=== PATIENT | female | born 1990 | race African-American/Black ===

== ENCOUNTER 2016-11-26 17:27 | Emergency (ER) | payer OTHER ==
[~2016-11-26] VITALS: Ht 172.7 cm; Wt 145.2 kg
[2016-11-26] MEDS ORDERED: TESSALON PERLE100 M1 PO (18:59)
[2016-11-26] MEDS ORDERED: NAPROSYN500 MG PO (18:59)
[2016-11-26 19:12] VITALS: BP 111/60
== END 2016-11-26 19:12 | disposition home or self-care (01) ==
LOC: ER 17:27
DX: J06.9 Acute upper respiratory infection, unspecified (principal); J45.909 Unspecified asthma, uncomplicated; R07.89 Other chest pain

== ENCOUNTER 2019-08-22 11:57 | Emergency (ER) | payer OTHER ==
[~2019-08-22] VITALS: Ht 172.7 cm; Wt 158.8 kg
[~2019-08-22 11:57] MED LIST: NAPROSYN500 MG PO; TESSALON PERLE100 M1 PO
[2019-08-22] MEDS ORDERED: CLARITIN10 M2 PO (12:15)
[2019-08-22] MEDS ORDERED: CLARITIN-D 121 EAC1 PO (13:55)
[2019-08-22 14:56] VITALS: BP 138/76
== END 2019-08-22 14:56 | disposition home or self-care (01) ==
LOC: ER 11:57
DX: B34.9 Viral infection, unspecified (principal); Z20.828 Contact with and (suspected) exposure to other viral communicable diseases; R50.9 Fever, unspecified; J45.909 Unspecified asthma, uncomplicated; Z79.899 Other long term (current) drug therapy

== ENCOUNTER → 2019-10-31 | Outpatient (CLI) | payer OTHER ==
[~2019-10-31] MED LIST changes: +CLARITIN-D 121 EAC1 PO; +CLARITIN10 M2 PO
== END ==
LOC: RAD 13:29
PROVIDERS: ATTEND Nurse Practitioner
DX: R93.89 Abnormal findings on diagnostic imaging of other specified body structures (principal)

== ENCOUNTER 2020-07-07 21:30 | Emergency (ER) | payer OTHER ==
[~2020-07-07] VITALS: Ht 172.7 cm; Wt 149.7 kg
[2020-07-07] MEDS ORDERED: IBU600 MG PO (23:45)
[2020-07-07] MEDS ORDERED: CYCLOBENZAPRINE5 MG PO (23:45)
[2020-07-07 23:55] VITALS: BP 132/78
== END 2020-07-08 | disposition home or self-care (01) ==
LOC: ER 21:30
DX: S16.1XXA Strain of muscle, fascia and tendon at neck level, initial encounter (principal); J45.909 Unspecified asthma, uncomplicated; Z79.899 Other long term (current) drug therapy; V49.88XA Car occupant (driver) (passenger) injured in other specified transport accidents, initial encounter; Y93.89 Activity, other specified; Y92.413 State road as the place of occurrence of the external cause; Y99.9 Unspecified external cause status

== ENCOUNTER 2020-09-05 19:39 | Emergency (ER) | payer OTHER ==
[~2020-09-05] VITALS: Ht 172.7 cm; Wt 163.3 kg
[~2020-09-05 19:39] MED LIST changes: +CYCLOBENZAPRINE5 MG PO; +IBU600 MG PO
[2020-09-05 20:58] VITALS: BP 132/58
== END 2020-09-05 21:00 | disposition home or self-care (01) ==
LOC: ER 19:39
DX: I89.0 Lymphedema, not elsewhere classified (principal); J45.909 Unspecified asthma, uncomplicated; Z79.899 Other long term (current) drug therapy